=== PATIENT | female | born 1995 | race Caucasian/White ===

== ENCOUNTER 2019-12-17 20:28 | Emergency (ER) | payer OTHER ==
[~2019-12-17] VITALS: Ht 160 cm; Wt 59.0 kg
[~2019-12-17 20:28] MED LIST: Amoxicillin500 MG PO; CEPH500 PO; CLIN150 PO; CYCL10 PO; FLUO20; HYDACE5 PO; HYDACE5325 PO; HYDHCL25 PO; IBUP600 PO; LAMO100 PO; NAPR500 PO; PIRBIS; PROM25 PO; PROM25S PR; RXHYD5325 PO; TETR250; Veetids 500500 MG PO; Zofran8 MG PO
== END 2019-12-17 22:00 | disposition home or self-care (01) ==
LOC: ER 20:28
DX: G43.909 Migraine, unspecified, not intractable, without status migrainosus (principal); F17.210 Nicotine dependence, cigarettes, uncomplicated; Z88.8 Allergy status to other drugs, medicaments and biological substances
CPT/HCPCS: 96374; 96375; 99283-25; J1200; J1885; J2765; J7030

== ENCOUNTER → 2019-12-29 | Outpatient (CLI) | payer OTHER | END | disposition home or self-care (01) | LOC: LAB SHORT 15:30 → LAB 15:30 | PROVIDERS: Obstetrics & Gynecology | DX: Z12.4 Encounter for screening for malignant neoplasm of cervix (principal) | CPT/HCPCS: G0123 ==